=== PATIENT | female | born 1975 | race Caucasian/White ===

== ENCOUNTER 2016-08-28 18:16 | Emergency (ER) | payer SELFPAY ==
[2016-08-28 18:39] VITALS: BP 120/70
[2016-08-28] MEDS ORDERED: traMADol 50 MG Tab PO ONE (18:47)
[2016-08-28] MEDS ORDERED: traMADol 50 MG Tab PO PRN (18:47)
--- NOTE | 2016-08-28 18:47 | EDM.PDOC ---
ED HPI Trauma - General Chief Complaint: Upper Extremity Injury/Pain Stated Complaint: SHOULDER PAIN Time Seen by Provider: 08/28/16 18:30 Source: Reports: Patient History Limitations: Reports: No limitations - History of Present Illness INITIAL COMMENTS - FREE TEXT/NARRATIVE: Lisa was playing VB last weekend when she hit a ball sharply off balance with LUE, developing pain in the L shoulder. Pain was sharp, worse with forward flexion and abduction, and seemed to stabilize with rest and NSAIDs. 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 There is neck pain, numbness or weakness in LUE. Allergies/ADRs: Allergies Penicillins Allergy (Intermediate, Verified 08/28/16 18:39) Rash Home Medications: Ambulatory Orders NK [No Known Home Meds] 05/18/15 [Confirmed 08/28/16] Past Medical History - Past Health History Medical/Surgical History: Denies Medical/Surgical History Social & Family History - Tobacco Use Smoking Status *Q: Current Every Day Smoker Years of Tobacco use: 15 Packs/Tins Daily: 0.1 - Recreational Drug Use Recreational Drug Use: No Review of Systems - Review of Systems Review Of Systems: See Below Constitutional: Reports: no symptoms Eyes: Reports: no symptoms Ears: Reports: no symptoms Nose: Reports: no symptoms Mouth/Throat: Reports: no symptoms Respiratory: Reports: No Symptoms Cardiovascular: Reports: no symptoms GI/Abdominal: Reports: No symptoms Musculoskeletal: Reports: shoulder pain (left) Skin: Reports: no symptoms Neurological: Reports: No Symptoms Psychiatric: Reports: no symptoms Trauma Exam - Physical Exam Exam: See Below Exam Limited By: No limitations General Appearance: Reports: alert, WD/WN, mild distress Head: Reports: normocephalic Neck: Reports: non-tender, full range of motion, normal alignment, normal inspection Respiratory Exam: Reports: lungs clear, normal breath sounds, chest non-tender Cardiovascular: Reports: regular rate, rhythm, no murmur Back: Reports: full range of motion, normal inspection, non-tender Extremities: Reports: no evidence of injury, pain with movement (L shoulder, FF to 50 deg, ABD to 55 deg, EXT to 30 deg) 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 She was administered Tramadol 50 mg for pain, and fitted with a sling for comfort. Last Recorded V/S: Last Vital Signs Temp 36.6 C 08/28/16 18:20 Pulse 77 08/28/16 18:20 Resp 16 08/28/16 18:20 BP 120/70 08/28/16 18:20 Pulse Ox 99 08/28/16 18:20 Departure - Departure Time of Disposition: 18:50 Disposition: Home, Self-Care 01 Condition: fair Clinical Impression: Strain of left shoulder Qualifiers: Encounter type: initial encounter Qualified Code(s): S46.912A - Strain of unspecified muscle, fascia and tendon at shoulder and upper arm level, left arm , initial encounter Forms: ED Department Discharge - Problem List & Annotations (1) Strain of left shoulder SNOMED Code(s): 097108185 Code(s): S46.912A - STRAIN UNSP MUSC/FASC/TEND AT SHLDR/UP ARM, LEFT ARM, INIT Status: Acute Annotation/Comment:: I suggested PT, AROM, provided a sling for comfort, and dispensed Tramadol 50 mg q6 hr prn for pain. Follow up with PCP or Ortho. Qualifiers: Encounter type: initial encounter Qualified Code(s): S46.912A - Strain of unspecified muscle, fascia and tendon at shoulder and upper arm level, left arm , initial encounter - Problem List Review Problem List Initiated/Reviewed/Updated: Yes - Assessment/Plan Plan: Follow up with PCP or Ortho.
== END 2016-08-28 18:52 | disposition home or self-care (01) ==
LOC: FB.ED 18:16
DX: S46.912A Strain of unspecified muscle, fascia and tendon at shoulder and upper arm level, left arm, initial encounter (principal); Z88.0 Allergy status to penicillin; F17.210 Nicotine dependence, cigarettes, uncomplicated; W21.00XA Struck by hit or thrown ball, unspecified type, initial encounter
CPT/HCPCS: 99282; A9270; 99283